=== PATIENT | male | born 1995 | race Caucasian/White ===

== ENCOUNTER 2017-08-14 18:57 | Emergency (ER) | payer OTHER ==
[~2017-08-14] VITALS: Ht 182.9 cm; Wt 90.9 kg
[2017-08-14 18:59] VITALS: BP 133/90; TEMP 98.6
[2017-08-14 19:36] VITALS: PULSE 86
== END 2017-08-14 19:35 | disposition home or self-care (01) ==
LOC: COL.ER 18:57
DX: L74.0 Miliaria rubra (principal)